=== PATIENT | male | born 1990 | race Caucasian/White ===

== ENCOUNTER 2022-06-07 17:00 | Inpatient (IN) | payer BC ==
[~2022-06-07] VITALS: Ht 172.7 cm; Wt 77.6 kg
[2022-06-07] MEDS ORDERED: ONDANSETRON HCL 4MG/2ML INJ IV ONE (17:30)
[2022-06-07] MEDS ORDERED: KETOROLAC 15MG/ML VIAL IV ONE ×2 (17:30→20:00)
[2022-06-07] MEDS ORDERED: SODIUM CHLORIDE 0.9% 1,000 ML IV ONE (17:30)
[2022-06-07 18:00] LABS: BASOPHILS % 0.4 % (0.0-2.0); EOSINOPHILS % 0.8 % (0.0-5.0); HEMATOCRIT. 46.2 % (42.0-52.0); LYMPHOCYTES % 14.8 % (20.0-50.0); MEAN CORPUSCULAR HEMOGLOBIN 29.7 pg (28.0-32.0); MEAN CORPUSCULAR VOLUME 85.4 fL (80.0-94.0); MEAN PLATELET VOLUME 9.1 fl (7.4-10.4); MONOCYTES % 6.3 % (2.0-8.0); NEUTROPHILS % 77.7 % (40.0-76.0); PLATELET 269 x1000/uL (130-400); RED BLOOD CELL COUNT 5.41 mill/uL (4.7-6.1); RED CELL DISTRIBUTION WIDTH 14.7 % (11.6-14.6)
[2022-06-07 18:09] LABS: CHLORIDE 106 mEq/L (98-107)
[2022-06-07 18:16] LABS: ETHANOL BLOOD < 10 mg/dL
[2022-06-07 19:52] LABS: CLARITY URINE CLEAR (CLEAR); COLOR URINE YELLOW (YELLOW); KETONES URINE NEGATIVE (NEGATIVE); LEUKOCYTE ESTERASE URINE NEGATIVE (NEGATIVE); NITRITE URINE NEGATIVE (NEGATIVE); OCCULT BLOOD URINE NEGATIVE (NEGATIVE); PROTEIN URINE NEGATIVE (NEGATIVE); SPECIFIC GRAVITY URINE 1.005 (1.005-1.030); UROBILINOGEN URINE 0.2 E.U./dL (0.2-1.0)
[2022-06-07 20:11] LABS: *AMPHETAMINES SCREEN URINE NEGATIVE (NEGATIVE); *BARBITURATES SCREEN URINE NEGATIVE (NEGATIVE); *BENZODIAZEPINES SCREEN URINE NEGATIVE (NEGATIVE); *COCAINE SCREEN URINE NEGATIVE (NEGATIVE); CANNABINOID URINE SCREEN NEGATIVE (NEGATIVE); METHADONE URINE SCREEN NEGATIVE (NEGATIVE); OPIATES URINE SCREEN NEGATIVE (NEGATIVE); PHENCYCLIDINE URINE SCREEN NEGATIVE (NEGATIVE)
[2022-06-07] MEDS ORDERED: MORPHINE SULFATE 4 MG/ML CPJ (NOT FOR IM USE) IV STA (21:11)
[2022-06-07] MEDS ORDERED: SODIUM CHLORIDE 0.9% 1000ML BAG (SEPSIS BOLUS) IV ONE (21:15)
[2022-06-07] MEDS ORDERED: PIPERACILLIN/TAZOBACTAM 3.375GM/50ML PREMIX IV ONE (21:15)
[2022-06-07] MEDS ORDERED: PIPERACILLIN/TAZ 3.375G PREMIX 50 ML IV NR (21:30)
[2022-06-07] MEDS ORDERED: PROPOFOL 200MG/20ML VIAL IV ONE (22:12)
[2022-06-07] MEDS ORDERED: FENTANYL CITRATE/PF 50MCG/ML 2ML VIAL ONE ×2 (22:13→23:34)
[2022-06-07] MEDS ORDERED: MIDAZOLAM HCL 2 MG/2 ML VIAL ONE (22:13)
[2022-06-07] MEDS ORDERED: SUCCINYLCHOLINE CHLORIDE 200MG/10ML IV ONE (22:18)
[2022-06-07] MEDS ORDERED: BUPIVACAINE HCL/PF 0.5% (5MG/ML) 10ML ONE (22:35)
[2022-06-07] MEDS ORDERED: SKIN ADHESIVE 0.7 GM EA TOP ONE (22:35)
[2022-06-07] MEDS ORDERED: DEXAMETHASONE 4MG/ML 1ML VIAL ONE (22:37)
[2022-06-07] MEDS ORDERED: ONDANSETRON HCL 4MG/2ML INJ ONE (22:38)
[2022-06-07] MEDS ORDERED: METOCLOPRAMIDE HCL 10MG/2ML VIAL ONE (22:38)
[2022-06-07] MEDS ORDERED: HYDROCODONE/ACETAMINOPHEN 5/325MG TABLET PO PRN ×2 (22:45)
[2022-06-07] MEDS ORDERED: MORPHINE SULFATE 4 MG/ML CPJ (NOT FOR IM USE) IV PRN (22:45)
[2022-06-07] MEDS ORDERED: ONDANSETRON HCL 4MG/2ML INJ IV PRN (22:45)
[2022-06-07] MEDS ORDERED: ROCURONIUM BROMIDE 10MG/ML VIAL 5ML IV ONE (22:46)
[2022-06-07] MEDS ORDERED: NALOXONE HCL 0.4MG/ML VIAL IV PRN (23:00)
[2022-06-07] MEDS ORDERED: NEOSTIGMINE METHYLSULFATE 1MG/ML 10 ML VIAL ONE (23:14)
[2022-06-07] MEDS ORDERED: GLYCOPYRROLATE 0.2 MG/ML 2ML VIAL ONE (23:14)
[2022-06-07] MEDS ORDERED: KETOROLAC 30MG/ML VIAL ONE (23:20)
[2022-06-08] MEDS ORDERED: FENTANYL CITRATE/PF 50MCG/ML 2ML VIAL IV PRN
[2022-06-08] MEDS ORDERED: ONDANSETRON HCL 4MG/2ML INJ IV NR
[2022-06-08 01:30] VITALS: BP 113/53
[2022-06-08] MEDS: DEXT 5%/0.45% NACL KCL 20MEQ/L 1,000 ML IV SCH ×2 (02:00→09:00)
[2022-06-08] MEDS: MORPHINE SULFATE 2 MG/ML CPJ (NOT FOR IM USE) IV PRN ×2 (03:44→11:00)
[2022-06-08 04:00] VITALS: BP 107/45
[2022-06-08] MEDS ORDERED: INFLUENZA VACCINE 05/PF 0.5 ML SYRINGE IM ONE (06:00)
[2022-06-08] MEDS: SODIUM CHLORIDE 0.9% INJ 3ML FLUSH IVF SCH ×2 (06:17→11:08)
[2022-06-08 08:00] VITALS: BP 107/54
[2022-06-08] MEDS ORDERED: HYDR-4001 MT (10:07)
[2022-06-08] MEDS ORDERED: ACET-3163 MT (10:07)
[2022-06-08 12:00] VITALS: BP 107/69
[2022-06-08 16:00] VITALS: BP 105/57
[2022-06-08 19:58] VITALS: BP 113/55
== END 2022-06-08 20:22 | disposition home or self-care (01) | DRG 343 ==
LOC: ER 17:00 → MICUSO 21:16 → 6EST 06-08 02:44
PROVIDERS: ADMIT Internal Medicine; ATTEND Internal Medicine
PROC: 0DTJ4ZZ Resection of Appendix, Percutaneous Endoscopic Approach (ICD-10-PCS; principal; 2022-06-07)
DX: K35.891 Other acute appendicitis without perforation, with gangrene (principal); Z20.822 Contact with and (suspected) exposure to COVID-19; F12.90 Cannabis use, unspecified, uncomplicated
CPT/HCPCS: 36415; 74176; 80053; 80305; 80320; 81003; 83605; 85025; 87426; 88304; 99291; C9803; J0330; J1100; J1885; J2250; J2270; J2405; J2543; J2704; J2710; J2765; J3010; J3490; J7030; G0480